=== PATIENT | male | born 1960 | race Caucasian/White ===

== ENCOUNTER 2025-02-08 08:26 | Outpatient (CLI) | payer MEDICARE, SELFPAY ==
--- NOTE | 2025-02-08 08:42 | MR_ITS ---
WS: [id number] MRI LUMBAR SPINE NONCONTRAST HISTORY: Chronic low back pain. Radiculopathy. COMPARISON: None available. TECHNIQUE: Sagittal and axial multisequence imaging is submitted. Disc osteophytes throughout the cervical spine contacting the ventral thecal sac, most significant at C6-7. Suspect component of cervical stenosis. Mild curvature. Disc spaces are slightly desiccated. No acute fracture or marrow edema. Conus terminates normally at L1. L1-L2: Normal. L2-L3: Normal. L3-L4: Diffuse annular disc bulging and osteophytic ridging, moderate facet and ligamentum flavum hypertrophy. There is mild disc encroachment upon the traversing L4 nerve roots. Very shallow RIGHT foraminal disc protrusion. L4-L5: Moderate osteophytic ridging with annular disc bulging. Disc encroaches into the subarticular recesses. Central annular fissure. Moderate central with bilateral subarticular recess stenosis. There is disc contacting the traversing L5 nerve roots, LEFT greater than RIGHT. No foraminal stenosis. L5-S1: Mild annular disc bulge with a tiny central disc protrusion. Very mild contact on the S1 nerve roots. Moderate ligamentum flavum and facet arthritis. Mild bilateral foraminal stenosis. Moderate atherosclerosis abdominal aorta. Mild ectasia but no aneurysmal dilatation. MR/MR lumbar spine wo con* [id number] IMPRESSION: 1. L4-5: Moderate central with bilateral subarticular recess stenosis with dis c contacting the traversing L5 nerve roots. No foraminal stenosis. 2. L5-S1: Small central disc protrusion with mild disc contact on the S1 nerve roots and mild bilateral foraminal stenosis. 3. L3-4: Very mild disc encroachment upon the traversing L4 nerve roots. Shall ow RIGHT foraminal disc protrusion.
== END 2025-02-08 08:27 | disposition home or self-care (01) ==
LOC: RAD 08:38
PROVIDERS: PCP Family Medicine; Visit Provider Family Medicine
DX: M54.31 Sciatica, right side (principal); M48.061 Spinal stenosis, lumbar region without neurogenic claudication; M51.27 Other intervertebral disc displacement, lumbosacral region; M48.07 Spinal stenosis, lumbosacral region; R93.7 Abnormal findings on diagnostic imaging of other parts of musculoskeletal system; M25.78 Osteophyte, vertebrae; M51.369 Other intervertebral disc degeneration, lumbar region without mention of lumbar back pain or lower extremity pain; M47.896 Other spondylosis, lumbar region; M24.28 Disorder of ligament, vertebrae; M51.A0 Intervertebral annulus fibrosus defect, lumbar region, unspecified size; M51.379 Other intervertebral disc degeneration, lumbosacral region without mention of lumbar back pain or lower extremity pain; M47.897 Other spondylosis, lumbosacral region; I70.0 Atherosclerosis of aorta; I77.811 Abdominal aortic ectasia
CPT/HCPCS: 72148